=== PATIENT | female | born 1985 | race African-American/Black ===

== ENCOUNTER 2018-01-06 12:55 | Inpatient (IN) | payer OTHER ==
[2018-01-06] VITALS (15 sets, daily range): BP systolic 136–187; BP diastolic 76–106
[~2018-01-06] VITALS: Ht 160 cm; Wt 89.4 kg
[2018-01-06 14:22] LABS: HEMATOCRIT 32.5 % (36.0-46.0); HEMOGLOBIN 10.4 G/DL (11.9-15.5); MCH 24.9 PG (29.0-34.0); MCV 77.9 FL (83-99); NRBC (%) 1.2 /100 WBC (0-0); RBC DIS.WIDTH-CV 17.3 % (11.8-14.6); RBC DIS.WIDTH-SD 46.4 % (39-53); RED BLOOD COUNT 4.17 M/uL (3.80-5.20); WHITE BLOOD COUNT 14.9 K/uL (4.1-10.2)
[2018-01-06] MEDS ORDERED: CHILD ASPIRIN81 M1 PO (14:29)
[2018-01-06] MEDS ORDERED: PRENATAL TABLE1 EAC3 PO (14:30)
[2018-01-06 14:45] LABS: ALBUMIN 3.3 G/DL (3.2-4.8); ALKALINE PHOSPHATASE 142 IU/L (3-129); ALT (GPT) 74 IU/L (3-49); AST (GOT) 126 IU/L (2-34); CHLORIDE 102 MEQ/L (99-109); CREATININE 0.8 MG/DL (0.6-1.3); GFR ESTIMATE (CALCULATED) > 59 mL/min/; GLUCOSE 85 mg/dL (70-99); LACTATE DEHYDROGENASE 630 IU/L (20-246); POTASSIUM 3.6 MEQ/L (3.7-5.4); SODIUM 133 MEQ/L (136-147); TOTAL BILIRUBIN 3.1 MG/DL (0.0-1.0); TOTAL PROTEIN 6.3 G/DL (6.4-8.3); UREA NITROGEN (BUN) 11 mg/dL (9-23); URIC ACID 11.4 mg/dL (3.1-9.2)
[2018-01-06 14:46] LABS: ABS NEUTROPHIL COUNT 12.3; ACANTHOCYTES 1+; ANISOCYTOSIS 2+; ATYPICAL LYMPHOCYTE 0.9 %; BAND NEUTROPHILS 1.7 % (0-8.0); BASOPHILS 0.9 %; BURR CELLS 1+; EOSINOPHIL ABS CT 0.1; EOSINOPHILS 0.9 % (0-5.0); IMM.PLATELET FRACTION 14.3 (1-7); LYMPHOCYTES 6.1 % (15.0-45.0); MACROCYTES 1+; METAMYELOCYTES 1.7 %; MONOCYTES 6.9 % (0-9.0); PLAT.SUFFICIENCY DECREASED; PLATELET COUNT 55 K/uL (156-360); POLYCHROMASIA 1+; SEG.NEUTROPHILS 80.9 % (46.0-76.0)
[2018-01-06 15:23] LABS: FIBRINOGEN 436 mg/dL (150-450)
[2018-01-06 15:25] LABS: PTT 27.3 SEC (25-37)
[2018-01-06 15:34] LABS: APPEARANCE SL.HAZY ((CLEAR)); BILIRUBIN SMALL; BLOOD MODERATE; GLUCOSE (STRIP) NEGATIVE; KETONES 80; LEUKOCYTES NEGATIVE; NITRITE NEGATIVE; PROTEIN (STRIP) >=500; SPECIFIC GRAVITY 1.026 (1.000-1.030)
[2018-01-06 15:36] LABS: COLOR AMBER ((YELLOW))
[2018-01-06 15:38] LABS: BACTERIA RARE /HPF; CALCIUM OXALATE CRYSTALS 1+ /HPF; EPITHELIAL CELLS 1+ /HPF; MUCUS 3+ /LPF; RED BLOOD CELLS TNTC /HPF (0-5); UCUL ADDED? YES
[2018-01-06 16:21] LABS: AMPHETAMINE NEGATIVE (500 ng/mL); BARBITURATES NEGATIVE (200 ng/mL); BENZODIAZEPINES NEGATIVE (150 ng/mL); BUPRENORPHINE NEGATIVE (10 ng/mL); COCAINE NEGATIVE (150 ng/mL); METHADONE NEGATIVE (200 ng/mL); METHAMPHETAMINE NEGATIVE (500 ng/mL); OPIATES (MORPHINE) NEGATIVE (100 ng/mL); OXYCODONE NEGATIVE (100 ng/mL); PHENCYCLIDINE NEGATIVE (25 ng/mL); PROPOXYPHENE NEGATIVE (300 ng/mL); THC CANNABINOIDS NEGATIVE (50 ng/mL); TRICYCLIC ANTIDEPRESSANTS NEGATIVE (300 ng/mL)
[2018-01-06 17:02] LABS: BICARBONATE 18.4 mEq/L (22-26); CARBOXY HGB 0.9 % (0-5); PCO2 44 mm Hg (35-45)
[2018-01-06 17:03] LABS: PO2 < 32 mm Hg (80-100); pH 7.23 (7.35-7.45)
[2018-01-06 17:24] LABS: UR CREATININE CONCENTRATION 200.2 MG/DL
[2018-01-06 20:02] LABS: HEMATOCRIT 28.8 % (36.0-46.0); MCH 24.5 PG (29.0-34.0); MCHC 31.3 G/DL (30.0-36.0); MCV 78.3 FL (83-99); NRBC (%) 1.1 /100 WBC (0-0); PLATELET COUNT 59 K/uL (156-360); RBC DIS.WIDTH-CV 16.9 % (11.8-14.6); RBC DIS.WIDTH-SD 46.5 % (39-53); RED BLOOD COUNT 3.68 M/uL (3.80-5.20); WHITE BLOOD COUNT 14.8 K/uL (4.1-10.2)
[2018-01-06 20:14] LABS: ALBUMIN 2.9 G/DL (3.2-4.8); CHLORIDE 105 MEQ/L (99-109); POTASSIUM 3.9 MEQ/L (3.7-5.4); SODIUM 133 MEQ/L (136-147)
[2018-01-06 20:20] LABS: ALKALINE PHOSPHATASE 116 IU/L (3-129); ALT (GPT) 68 IU/L (3-49); AST (GOT) 122 IU/L (2-34); CREATININE 0.6 MG/DL (0.6-1.3); GFR ESTIMATE (CALCULATED) > 59 mL/min/; TOTAL PROTEIN 5.5 G/DL (6.4-8.3); UREA NITROGEN (BUN) 10 mg/dL (9-23)
[2018-01-06 20:23] LABS: GLUCOSE 139 mg/dL (70-99)
[2018-01-07] VITALS (19 sets, daily range): BP systolic 125–148; BP diastolic 66–86
[2018-01-07 06:47] LABS: BASOPHIL (%) 0.3 % (0-1); EOSINOPHIL (%) 0.1 % (0-5); HEMATOCRIT 25.2 % (36.0-46.0); HEMOGLOBIN 7.9 G/DL (11.9-15.5); IMMATURE GRANULOCYTE (%) 2.8 % (0.0-0.7); LYMPHOCYTE (%) 6.6 % (15-42); LYMPHOCYTE COUNT 0.9 K/uL (1.0-2.8); MCH 24.9 PG (29.0-34.0); MCHC 31.3 G/DL (30.0-36.0); MCV 79.5 FL (83-99); MONOCYTE (%) 7.1 % (3-12); NEUTROPHIL (%) 83.1 % (45-76); NEUTROPHIL COUNT 11.9 K/uL (1.8-6.4); NRBC (%) 0.6 /100 WBC (0-0); RBC DIS.WIDTH-CV 17.2 % (11.8-14.6); RED BLOOD COUNT 3.17 M/uL (3.80-5.20); WHITE BLOOD COUNT 14.3 K/uL (4.1-10.2)
[2018-01-07 06:53] LABS: ALBUMIN 2.8 G/DL (3.2-4.8); ALKALINE PHOSPHATASE 100 IU/L (3-129); ALT (GPT) 58 IU/L (3-49); AST (GOT) 71 IU/L (2-34); CHLORIDE 105 MEQ/L (99-109); CREATININE 0.6 MG/DL (0.6-1.3); GFR ESTIMATE (CALCULATED) > 59 mL/min/; GLUCOSE 105 mg/dL (70-99); POTASSIUM 4.2 MEQ/L (3.7-5.4); SODIUM 135 MEQ/L (136-147); UREA NITROGEN (BUN) 9 mg/dL (9-23)
[2018-01-07 07:00] LABS: TOTAL BILIRUBIN 1.7 MG/DL (0.0-1.0)
[2018-01-07 07:07] LABS: PLAT.SUFFICIENCY DECREASED; PLATELET COUNT 59 K/uL (156-360)
[2018-01-08 02:57] VITALS: BP 131/75
[2018-01-08 06:15] LABS: HEMATOCRIT 24.7 % (36.0-46.0); HEMOGLOBIN 7.6 G/DL (11.9-15.5); MCH 24.9 PG (29.0-34.0); MCHC 30.8 G/DL (30.0-36.0); NRBC (%) 1.8 /100 WBC (0-0); RBC DIS.WIDTH-CV 19.1 % (11.8-14.6); RBC DIS.WIDTH-SD 48.7 % (39-53); RED BLOOD COUNT 3.05 M/uL (3.80-5.20)
[2018-01-08 06:22] LABS: ALBUMIN 2.8 G/DL (3.2-4.8); ALKALINE PHOSPHATASE 106 IU/L (3-129); ALT (GPT) 40 IU/L (3-49); CHLORIDE 105 MEQ/L (99-109); CREATININE 0.7 MG/DL (0.6-1.3); GFR ESTIMATE (CALCULATED) > 59 mL/min/; GLUCOSE 88 mg/dL (70-99); POTASSIUM 3.9 MEQ/L (3.7-5.4); SODIUM 135 MEQ/L (136-147); UREA NITROGEN (BUN) 10 mg/dL (9-23)
[2018-01-08 06:23] LABS: AST (GOT) 28 IU/L (2-34); TOTAL BILIRUBIN 0.9 MG/DL (0.0-1.0)
[2018-01-08 06:26] LABS: PLAT.SUFFICIENCY DECREASED
[2018-01-08 06:28] LABS: PLATELET COUNT 84 K/uL (156-360)
[2018-01-08 08:17] VITALS: BP 138/73
[2018-01-08 10:47] VITALS: BP 128/74
[2018-01-08 14:48] VITALS: BP 131/64
[2018-01-08 23:11] VITALS: BP 129/72
[2018-01-09] VITALS (18 sets, daily range): BP systolic 131–173; BP diastolic 70–81
[2018-01-09 06:06] LABS: HEMATOCRIT 22.5 % (36.0-46.0); MCH 25.2 PG (29.0-34.0); MCHC 30.2 G/DL (30.0-36.0); MCV 83.3 FL (83-99); NRBC (%) 1.6 /100 WBC (0-0); RBC DIS.WIDTH-CV 19.8 % (11.8-14.6); RBC DIS.WIDTH-SD 49.7 % (39-53); WHITE BLOOD COUNT 11.6 K/uL (4.1-10.2)
[2018-01-09 06:11] LABS: HEMOGLOBIN 6.8 G/DL (11.9-15.5); PLATELET COUNT 111 K/uL (156-360)
[2018-01-09 06:26] LABS: ABS NEUTROPHIL COUNT 9.5; ANISOCYTOSIS 1+; BAND NEUTROPHILS 2.6 % (0-8.0); EOSINOPHIL ABS CT 0.2; EOSINOPHILS 1.7 % (0-5.0); LYMPHOCYTES 14.8 % (15.0-45.0); METAMYELOCYTES 0.9 %; MYELOCYTES 0.9 %; NUCLEATED RBC'S 0.9; PLAT.SUFFICIENCY DECREASED; POLYCHROMASIA 1+; SCHISTOCYTES 1+; SEG.NEUTROPHILS 79.1 % (46.0-76.0); TARGET CELLS 1+
[2018-01-09 20:10] LABS: HEMATOCRIT 33.3 % (36.0-46.0); MCH 26.6 PG (29.0-34.0); MCHC 31.5 G/DL (30.0-36.0); MCV 84.3 FL (83-99); NRBC (%) 1.8 /100 WBC (0-0); RBC DIS.WIDTH-CV 18.5 % (11.8-14.6); RBC DIS.WIDTH-SD 48.7 % (39-53); WHITE BLOOD COUNT 14.6 K/uL (4.1-10.2)
[2018-01-09 20:14] LABS: HEMOGLOBIN 10.5 G/DL (11.9-15.5); PLATELET COUNT 147 K/uL (156-360); RED BLOOD COUNT 3.95 M/uL (3.80-5.20)
[2018-01-09 22:04] LABS: ABS NEUTROPHIL COUNT 10.4; EOSINOPHIL ABS CT 0.4
[2018-01-10 06:27] VITALS: BP 172/87
[2018-01-10 06:28] VITALS: BP 163/72
[2018-01-10 08:02] VITALS: BP 164/91
[2018-01-10] MEDS ORDERED: ENDOCET 5-3251 EACH PO (08:23)
[2018-01-10] MEDS ORDERED: FERROUS SULFAT325 MG PO (08:23)
[2018-01-10] MEDS ORDERED: IBUPROFEN800 MG PO (08:23)
[2018-01-10] MEDS ORDERED: PROCARDIA20 MG PO (16:52)
== END 2018-01-10 17:30 | disposition home or self-care (01) | DRG 765 ==
LOC: LDRP-OP 12:55 → 2WEST 12:56 → LDRP-OP 02-27 14:11
PROVIDERS: Advanced Practice Midwife; Obstetrics & Gynecology; Obstetrics & Gynecology Obstetrics
DX: O14.24 HELLP syndrome, complicating childbirth (principal); D62 Acute posthemorrhagic anemia; O76 Abnormality in fetal heart rate and rhythm complicating labor and delivery; O99.214 Obesity complicating childbirth; E66.9 Obesity, unspecified; Z68.30 Body mass index [BMI] 30.0-30.9, adult; Z14.1 Cystic fibrosis carrier; Z30.2 Encounter for sterilization; Z3A.37 37 weeks gestation of pregnancy; Z37.0 Single live birth; O99.02 Anemia complicating childbirth; D50.9 Iron deficiency anemia, unspecified
CPT/HCPCS: 36600; 76705; 80053; 81003; 82570; 82803; 83615; 84156; 84550; 85025; 85025 91; 85027; 85384; 85610; 85730; 86850; 86900; 86901; 86920; 87086; 88302; 88304; 88307; J0360; J1170; J1580; J2590; J3010; J3475; J7050; J7120; P9016; P9035